=== PATIENT | female | born 1970 | race Hispanic/Latino ===

== ENCOUNTER 2017-03-02 21:39 | Emergency (ER) | payer MEDICAID, OTHER ==
[2017-03-02] MEDS ORDERED: FAMOTIDINE 20MG TAB 20 MG TAB ONE (22:14)
[2017-03-02] MEDS ORDERED: DIPHENHYDRAMINE HCL 25 MG CAPSULE ONE (22:14)
[2017-03-02] MEDS ORDERED: DEXAMETHASONE SOD PHOSPHATE 10MG/ML 1ML VIAL ONE (22:14)
== END 2017-03-02 23:19 | disposition home or self-care (01) ==
LOC: EDH 21:39
DX: T78.49XA Other allergy, initial encounter (principal); X58.XXXA Exposure to other specified factors, initial encounter
CPT/HCPCS: 96372; 99283; J1100; Q0163

== ENCOUNTER 2017-07-20 00:35 | Emergency (ER) | payer OTHER ==
[2017-07-20] MEDS ORDERED: DIPHENHYDRAMINE HCL 25 MG CAPSULE ONE (01:36)
== END 2017-07-20 02:33 | disposition home or self-care (01) ==
LOC: EDH 00:35
DX: T78.49XA Other allergy, initial encounter (principal); Z88.1 Allergy status to other antibiotic agents; X58.XXXA Exposure to other specified factors, initial encounter
CPT/HCPCS: 99283; Q0163

== ENCOUNTER 2018-03-21 12:27 | Emergency (ER) | payer SELFPAY | END 2018-03-21 12:58 | disposition home or self-care (01) | LOC: EDH 12:27 | DX: H10.9 Unspecified conjunctivitis (principal); Z88.0 Allergy status to penicillin; Z88.1 Allergy status to other antibiotic agents; Z72.0 Tobacco use ==

== ENCOUNTER 2018-08-21 13:23 | Emergency (ER) | payer OTHER | END 2018-08-21 14:16 | disposition left against medical advice (07) | LOC: EDH 13:23 | DX: M79.632 Pain in left forearm (principal); Z53.21 Procedure and treatment not carried out due to patient leaving prior to being seen by health care provider; Z88.0 Allergy status to penicillin ==

== ENCOUNTER 2018-10-19 19:25 | Emergency (ER) | payer OTHER ==
[2018-10-19] MEDS ORDERED: IBUPROFEN 200 MG TAB ONE (19:57)
== END 2018-10-19 20:41 | disposition home or self-care (01) ==
LOC: EDH 19:25
DX: S93.602A Unspecified sprain of left foot, initial encounter (principal); S96.912A Strain of unspecified muscle and tendon at ankle and foot level, left foot, initial encounter; S46.912A Strain of unspecified muscle, fascia and tendon at shoulder and upper arm level, left arm, initial encounter; Z88.0 Allergy status to penicillin; Z88.1 Allergy status to other antibiotic agents; W01.0XXA Fall on same level from slipping, tripping and stumbling without subsequent striking against object, initial encounter; Y93.01 Activity, walking, marching and hiking; Y92.89 Other specified places as the place of occurrence of the external cause; Y99.8 Other external cause status
CPT/HCPCS: 73630

== ENCOUNTER 2021-07-15 14:48 | Emergency (ER) | payer OTHER ==
[~2021-07-15] VITALS: Ht 160 cm; Wt 67.6 kg
[2021-07-15 15:09] VITALS: BP 129/84
[2021-07-15] MEDS ORDERED: LIDOCAINE HCL-MPF 1% 2ML VIAL ONE (15:14)
[2021-07-15] MEDS ORDERED: CLAR-44 PO (15:20)
[2021-07-15] MEDS ORDERED: IBUP-2071 PO (15:20)
[2021-07-15] MEDS ORDERED: ACETAMINOPHEN WITH CODEINE 1 TAB TAB PO ONE (15:30)
[2021-07-15] MEDS ORDERED: CEFTRIAXONE 1G VIAL IM ONE (15:30)
[2021-07-15] MEDS ORDERED: NEOMYCIN/POLYMYXIN/HC OTIC SUSP 10ML BOTTLE AS SCH (15:30)
== END 2021-07-15 15:46 | disposition home or self-care (01) ==
LOC: EDH 14:48
DX: H65.92 Unspecified nonsuppurative otitis media, left ear (principal); E78.00 Pure hypercholesterolemia, unspecified; Z88.0 Allergy status to penicillin; Z88.1 Allergy status to other antibiotic agents
CPT/HCPCS: 82948; 96372; 99283; J0696; J3490

== ENCOUNTER 2022-04-20 01:55 | Emergency (ER) | payer OTHER ==
[~2022-04-20] VITALS: Ht 160 cm; Wt 76.2 kg
[~2022-04-20 01:55] MED LIST: CLAR-44 PO; HYDR-3422 PO; IBUP-2071 PO
[2022-04-20 01:57] VITALS: BP 137/101
[2022-04-20] MEDS ORDERED: LIDOCAINE HCL 2% VISCOUS 15 ML UDCUP PO ONE (03:00)
[2022-04-20] MEDS ORDERED: DICYCLOMINE HCL 10 MG/5 ML ML PO ONE (03:00)
[2022-04-20] MEDS ORDERED: ONDANSETRON 4MG INJ IVP ONE (03:00)
[2022-04-20] MEDS ORDERED: MAG/ALUM/SIMETH 30 ML UDCUP PO ONE (03:00)
[2022-04-20 03:17] LABS: HEMATOCRIT 41.1 % (36-48); LYMPHOCYTES % (AUTO) 34.2 % (21.0-51.0); MEAN CORPUSCULAR HEMOGLOBIN 31.3 pg (27.0-33.0); MEAN CORPUSCULAR HGB CONC 33.6 g/dL (32.0-36.0); MEAN CORPUSCULAR VOLUME 93.2 fL (79-99); MONOCYTES % (AUTO) 6.9 % (3.0-13.0); NEUTROPHILS % (AUTO) 55.5 % (40.0-77.0); PLATELET COUNT (AUTO) 361 K/uL (130-400); RED BLOOD CELL COUNT(AUTO) 4.41 MIL/uL (4.00-5.50); RED CELL DISTRIBUTION WIDTH 12.7 % (11.0-15.5); WHITE BLOOD COUNT (AUTO) 8.9 K/uL (4.8-10.8)
[2022-04-20 03:24] LABS: CREATININE 0.6 mg/dL (0.5-1.5); POTASSIUM 3.5 mmol/L (3.5-5.1)
[2022-04-20 03:28] LABS: ALBUMIN 3.5 g/dL (3.5-5.0); TOTAL PROTEIN, SERUM 7.2 g/dL (6.0-8.3)
[2022-04-20] MEDS ORDERED: ONDA4TAB10 PO (04:43)
[2022-04-20] MEDS ORDERED: MORPHINE 2 MG SYG IVP ONE (05:30)
== END 2022-04-20 06:15 | disposition home or self-care (01) ==
LOC: EDH 01:55
DX: R10.13 Epigastric pain (principal); R14.0 Abdominal distension (gaseous); R11.0 Nausea; E78.00 Pure hypercholesterolemia, unspecified; Z79.1 Long term (current) use of non-steroidal anti-inflammatories (NSAID); Z88.0 Allergy status to penicillin; Z79.2 Long term (current) use of antibiotics; Z79.899 Other long term (current) drug therapy; Z88.1 Allergy status to other antibiotic agents
CPT/HCPCS: 99284; 96374; 96375; 80053; 83690; 85025; 36415; J2405

== ENCOUNTER 2022-07-04 20:45 | Emergency (ER) | payer OTHER ==
[~2022-07-04 20:45] MED LIST changes: +ONDA4TAB10 PO
== END 2022-07-04 21:23 | disposition left against medical advice (07) ==
LOC: EDH 20:45
DX: R21 Rash and other nonspecific skin eruption (principal); Z53.21 Procedure and treatment not carried out due to patient leaving prior to being seen by health care provider

== ENCOUNTER 2022-07-25 05:55 | Inpatient (IN) | payer OTHER ==
[~2022-07-25] VITALS: Ht 160 cm; Wt 76.2 kg
[2022-07-25] MEDS ORDERED: MORPHINE 4 MG SYG IVP ONE (06:30)
[2022-07-25] MEDS ORDERED: 0.9%NACL 1000ML 2,000 ML IV ONE (06:30)
[2022-07-25] MEDS ORDERED: ONDANSETRON 4MG INJ IVP ONE (06:30)
[2022-07-25 06:39] LABS: BASOPHILS % (AUTO) 0.7 % (0.0-5.0); EOSINOPHILS % (AUTO) 0.7 % (0.0-8.0); HEMATOCRIT 42.5 % (36-48); LYMPHOCYTES % (AUTO) 30.4 % (21.0-51.0); MEAN CORPUSCULAR HEMOGLOBIN 31.1 pg (27.0-33.0); MEAN CORPUSCULAR HGB CONC 34.4 g/dL (32.0-36.0); MEAN CORPUSCULAR VOLUME 90.4 fL (79-99); MONOCYTES % (AUTO) 4.7 % (3.0-13.0); NEUTROPHILS % (AUTO) 63.1 % (40.0-77.0); PLATELET COUNT (AUTO) 364 K/uL (130-400); RED CELL DISTRIBUTION WIDTH 12.6 % (11.0-15.5); WHITE BLOOD COUNT (AUTO) 12.9 K/uL (4.8-10.8)
[2022-07-25 06:46] LABS: ALBUMIN 3.8 g/dL (3.5-5.0); CREATININE 0.8 mg/dL (0.5-1.5); POTASSIUM 3.6 mmol/L (3.5-5.1); TOTAL PROTEIN, SERUM 7.8 g/dL (6.0-8.3)
[2022-07-25 06:47] LABS: HCG,QUALITATIVE URINE NEGATIVE (NEGATIVE)
[2022-07-25 07:06] LABS: APPEARANCE,URINE CLOUDY (CLEAR); BILIRUBIN,URINE NEGATIVE (NEGATIVE); COLOR,URINE LIGHT-YELLOW (YELLOW); GLUCOSE, URINE (UA) NEGATIVE (NEGATIVE); KETONES,URINE 10 mg/dL (NEGATIVE); LEUKOCYTE ESTERASE ,URINE NEGATIVE Leu/uL (NEGATIVE); NITRATE,URINE NEGATIVE (NEGATIVE); OCCULT BLOOD,URINE NEGATIVE (NEGATIVE); PROTEIN,URINE 10 mg/dL (NEGATIVE); UROBILINOGEN,URINE 0.2 mg/dL (0.2-1.0)
[2022-07-25] MEDS ORDERED: TRANEXAMIC ACID 1000MG/10ML IV STA (07:22)
[2022-07-25 07:24] LABS: BACTERIA,URINE RARE /HPF (None Seen); MUCUS,URINE RARE LPF (None Seen); OTHER CASTS, URINE 1 /LPF (None Seen); RBC,URINE 0-1 /HPF (0-1); SQUAMOUS EPITHELIAL CELL,UR RARE /HPF (0-2)
[2022-07-25 08:30] LABS: INR 0.93 (0.85-1.15); PROTHROMBIN TIME 9.8 SEC (9.6-11.6)
[2022-07-25] MEDS ORDERED: ONDANSETRON 4MG INJ IVP PRN (08:30)
[2022-07-25] MEDS ORDERED: 0.9%NACL 1000ML 1,000 ML IV SCH (08:30)
[2022-07-25 08:31] LABS: PARTIAL THROMBOPLASTIN TIME 27.4 SEC (26.3-35.5)
[2022-07-25] MEDS: PANTOPRAZOLE 40 MG/VIAL IVP SCH (09:26)
[2022-07-25] MEDS: LEVOFLOXACIN 500 MG/D5W 100 ML 100 ML IV SCH (09:26)
[2022-07-25] MEDS: METRONIDAZOLE 500MG/100ML BAG 100 ML IVPB SCH ×2 (15:49→22:25)
[2022-07-25] MEDS: KETOROLAC 15MG/ML VIAL (15MG/ML) IV PRN (17:32)
[2022-07-25 18:23] VITALS: BP 136/71
[2022-07-25] MEDS ORDERED: CYAN1TAB41 SL (22:22)
[2022-07-25] MEDS ORDERED: FLUTICASONE (22:22)
[2022-07-25] MEDS ORDERED: CALC1TAB2 PO (22:22)
[2022-07-25 22:50] VITALS: BP 92/54
[2022-07-25] MEDS ORDERED: CHOL-34 PO (23:53)
[2022-07-26] VITALS (20 sets, daily range): BP systolic 95–136; BP diastolic 57–83
[2022-07-26] MEDS: METRONIDAZOLE 500MG/100ML BAG 100 ML IVPB SCH ×3 (06:09→21:43)
[2022-07-26 06:48] LABS: BASOPHILS % (AUTO) 0.9 % (0.0-5.0); EOSINOPHILS % (AUTO) 2.1 % (0.0-8.0); HEMATOCRIT 34.9 % (36-48); LYMPHOCYTES % (AUTO) 34.9 % (21.0-51.0); MEAN CORPUSCULAR HEMOGLOBIN 31.3 pg (27.0-33.0); MEAN CORPUSCULAR VOLUME 94.8 fL (79-99); MONOCYTES % (AUTO) 8.5 % (3.0-13.0); NEUTROPHILS % (AUTO) 53.1 % (40.0-77.0); PLATELET COUNT (AUTO) 261 K/uL (130-400); RED BLOOD CELL COUNT(AUTO) 3.68 MIL/uL (4.00-5.50); WHITE BLOOD COUNT (AUTO) 5.9 K/uL (4.8-10.8)
[2022-07-26 07:12] LABS: ALBUMIN 2.8 g/dL (3.5-5.0); CREATININE 0.5 mg/dL (0.5-1.5); MAGNESIUM 2.1 mg/dL (1.80-2.40); POTASSIUM 3.5 mmol/L (3.5-5.1); TOTAL PROTEIN, SERUM 5.9 g/dL (6.0-8.3)
[2022-07-26] MEDS: LEVOFLOXACIN 500 MG/D5W 100 ML 100 ML IV SCH (07:52)
[2022-07-26] MEDS: PANTOPRAZOLE 40 MG/VIAL IVP SCH (07:57)
[2022-07-26] MEDS ORDERED: MIDAZOLAM HCL 1 MG/ML 2ML VIAL ONE (12:31)
[2022-07-26] MEDS ORDERED: ONDANSETRON 4MG INJ ONE (12:31)
[2022-07-26] MEDS ORDERED: ROCURONIUM 10MG/1ML SYR 10 MG/ML ML ONE (12:34)
[2022-07-26] MEDS ORDERED: PROPOFOL 10 MG/ML 20ML VIAL IV ONE (12:34)
[2022-07-26] MEDS ORDERED: FENTANYL CITRATE PF 50 MCG/1 ML 2ML VIAL ONE ×2 (12:34→14:29)
[2022-07-26] MEDS ORDERED: LIDOCAINE HCL 1% 20 ML VIAL ONE (12:37)
[2022-07-26] MEDS ORDERED: BUPIVACAINE/PF 0.25% 30ML VIAL IJ ONE (12:38)
[2022-07-26] MEDS ORDERED: INDOCYANINE GREEN 25 MG VIAL IJ ONE (12:39)
[2022-07-26] MEDS ORDERED: EPHEDRINE SULFATE 50 MG/ML AMPULE ONE (13:24)
[2022-07-26] MEDS ORDERED: NEOSTIGMINE 5MG/5ML SYR IV ONE (15:01)
[2022-07-26] MEDS ORDERED: GLYCOPYRROLATE 1 MG/5 ML SYRINGE ONE (15:02)
[2022-07-26] MEDS ORDERED: MEPERIDINE-PF 25 MG/ML SYG ONE ×2 (15:25→15:34)
[2022-07-26] MEDS ORDERED: MEPERIDINE-PF 25 MG/ML SYG IVP SCH (15:30)
[2022-07-26] MEDS: MORPHINE 2 MG SYG IVP PRN (22:13)
[2022-07-27] MEDS: KETOROLAC 15MG/ML VIAL (15MG/ML) IV PRN ×2 (01:31→08:03)
[2022-07-27 03:05] VITALS: BP 111/68
[2022-07-27] MEDS: METRONIDAZOLE 500MG/100ML BAG 100 ML IVPB SCH ×2 (05:45→13:33)
[2022-07-27] MEDS: MORPHINE 2 MG SYG IVP PRN ×2 (06:43→13:33)
[2022-07-27 06:46] LABS: BASOPHILS % (AUTO) 0.5 % (0.0-5.0); EOSINOPHILS % (AUTO) 0.3 % (0.0-8.0); HEMATOCRIT 33.8 % (36-48); LYMPHOCYTES % (AUTO) 27.3 % (21.0-51.0); MEAN CORPUSCULAR HEMOGLOBIN 31.7 pg (27.0-33.0); MEAN CORPUSCULAR HGB CONC 33.4 g/dL (32.0-36.0); MEAN CORPUSCULAR VOLUME 94.7 fL (79-99); MONOCYTES % (AUTO) 7.9 % (3.0-13.0); NEUTROPHILS % (AUTO) 63.5 % (40.0-77.0); PLATELET COUNT (AUTO) 285 K/uL (130-400); RED BLOOD CELL COUNT(AUTO) 3.57 MIL/uL (4.00-5.50); RED CELL DISTRIBUTION WIDTH 12.9 % (11.0-15.5); WHITE BLOOD COUNT (AUTO) 9.1 K/uL (4.8-10.8)
[2022-07-27] MEDS: LEVOFLOXACIN 500 MG/D5W 100 ML 100 ML IV SCH (06:47)
[2022-07-27] MEDS ORDERED: IBUP-2071 PO (07:03)
[2022-07-27] MEDS ORDERED: ONDA4TAB10 PO (07:03)
[2022-07-27 07:22] LABS: BILIRUBIN,DIRECT 0.1 mg/dL (0.0-0.3); CREATININE 0.6 mg/dL (0.5-1.5); TOTAL PROTEIN, SERUM 6.2 g/dL (6.0-8.3)
[2022-07-27 08:00] VITALS: BP 127/79
[2022-07-27] MEDS ORDERED: POTASSIUM CHLORIDE 20MEQ/100ML 100 ML IV PRN (09:00)
[2022-07-27] MEDS ORDERED: PHENAZOPYRIDINE HCL 200 MG TABLET PO ONE (09:00)
[2022-07-27] MEDS ORDERED: BISACODYL 10 MG SUPP.RECT RC PRN (09:00)
[2022-07-27] MEDS ORDERED: POTASSIUM CHLORIDE 10% ELIXIR 20 MEQ/15 ML UDCUP PO PRN (09:00)
[2022-07-27] MEDS: KCL 20 MEQ ERTAB PO PRN ×4 (09:04→15:31)
[2022-07-27] MEDS: PANTOPRAZOLE 40 MG/VIAL IVP SCH (09:04)
[2022-07-27] MEDS: SIMETHICONE 80 MG TAB.CHEW PO PRN ×2 (09:05→13:33)
[2022-07-27 11:25] VITALS: BP 111/61
[2022-07-27] MEDS ORDERED: IBUP-2077 PO (14:11)
[2022-07-27] MEDS ORDERED: LEVO-70 PO (14:13)
[2022-07-27 15:15] VITALS: BP 118/63
== END 2022-07-27 17:20 | disposition home or self-care (01) | DRG 418 ==
LOC: EDH 05:55 → EDHIP 05:56 → WSH 20:09
PROVIDERS: ADMIT Internal Medicine; ATTEND Internal Medicine
PROC: 8E0W4CZ Robotic Assisted Procedure of Trunk Region, Percutaneous Endoscopic Approach (ICD-10-PCS; 2022-07-26)
PROC: 0FT44ZZ Resection of Gallbladder, Percutaneous Endoscopic Approach (ICD-10-PCS; principal; 2022-07-26 13:21)
DX: K80.00 Calculus of gallbladder with acute cholecystitis without obstruction (principal); E87.1 Hypo-osmolality and hyponatremia; Z20.822 Contact with and (suspected) exposure to COVID-19; K76.0 Fatty (change of) liver, not elsewhere classified; E86.1 Hypovolemia; E86.0 Dehydration; E78.00 Pure hypercholesterolemia, unspecified; Z82.49 Family history of ischemic heart disease and other diseases of the circulatory system
CPT/HCPCS: 36415; 76705; 80048; 80053; 80076; 81001; 81025; 83690; 83735; 84145; 84484; 85025; 85610; 85651; 85730; 86140; 87635; 87804; 93005; C9113; C9803; G0378; J1885; J1956; J2175; J2250; J2270; J2405; J2704; J2710; J3010; J3490; J7030